=== PATIENT | male | born 1980 | race Caucasian/White ===

== ENCOUNTER 2018-12-20 11:55 | Observation (INO) | payer BC ==
[2018-12-20] MEDS ORDERED: SODIUM CHLORIDE 0.9% 1,000 ML IV STA (12:30)
[2018-12-20] MEDS ORDERED: NITROGLYCERIN SL TABS 0.4 MG TAB SUBLINGUAL STA ×3 (12:30)
[2018-12-20] MEDS ORDERED: ASPIRIN 81 MG PO STA (12:30)
--- NOTE | 2018-12-20 12:34 | ED ---
General Adult HPI - General Chief complaint: Chest Pain Stated complaint: chest pain Time Seen by Provider: 12/20/18 12:01 Source: patient, EMS, RN notes reviewed Mode of arrival: EMS Limitations: no limitations - History of Present Illness Initial comments: Patient is a pleasant 38-year-old male presenting to the emergency Department with complaints of chest discomfort. Onset of symptoms was 3 AM. Symptoms have progressively worsened since that time and starting to become more moderate now. Discomfort feels like pressure. No radiation. Patient does have some mild associated dyspnea and was sweaty one point earlier. No nausea. Patient does question if his symptoms could be related to anxiety. - Related Data Home Medications Medication Instructions Recorded Confirmed Atenolol [Tenormin] 12.5 mg PO BID 12/20/18 12/20/18 Dextroamphetamine/Amphetamine 30 mg PO QAM 12/20/18 12/20/18 [Adderall Xr] Allergies Allergy/AdvReac Type Severity Reaction Status Date / Time No Known Allergies Allergy Verified 12/20/18 12:16 Review of Systems ROS Statement: Those systems with pertinent positive or pertinent negative responses have been documented in the HPI. ROS Other: All systems not noted in ROS Statement are negative. Constitutional: Denies: fever Eyes: Denies: eye pain ENT: Denies: ear pain Respiratory: Reports: as per HPI Cardiovascular: Reports: chest pain Endocrine: Denies: fatigue Gastrointestinal: Denies: abdominal pain Genitourinary: Denies: dysuria Musculoskeletal: Denies: back pain Skin: Denies: rash Neurological: Denies: weakness Psychiatric: Reports: anxiety Past Medical History Past Medical History: Hypertension History of Any Multi-Drug Resistant Organisms: None Reported Past Surgical History: No Surgical Hx Reported Past Psychological History: ADD/ADHD Smoking Status: Never smoker Past Alcohol Use History: Occasional Past Drug Use History: Marijuana General Exam Limitations: no limitations General appearance: alert, in no apparent distress Head exam: Present: atraumatic Eye exam: Present: normal appearance, PERRL ENT exam: Present: normal oropharynx Neck exam: Present: normal inspection Respiratory exam: Present: normal lung sounds bilaterally Cardiovascular Exam: Present: regular rate, normal rhythm Expanded Peripheral pulses: 2+: Radial (R), Radial (L), Posterior Tibialis (R), Posterior Tibialis (L) GI/Abdominal exam: Present: soft. Absent: tenderness Extremities exam: Present: normal inspection. Absent: pedal edema, calf tenderness Neurological exam: Present: alert Psychiatric exam: Present: normal affect, normal mood Skin exam: Present: normal color Course Vital Signs 12/20/18 12/20/18 12/20/18 11:57 12:04 14:24 Temperature 99.0 F Pulse Rate 114 H 105 H 104 H Respiratory 22 18 Rate Blood Pressure 120/99 136/101 O2 Sat by Pulse 100 98 Oximetry - Reevaluation(s) Reevaluation #1: 12/20/18 12:32 Patient does admit that he did try methamphetamine and marijuana 2 days ago and questions if that could be related to his symptoms. EKG Findings - EKG Comments: EKG Findings:: Sinus tachycardia 108. WA 170. QRS 96. QT 364. QTC 487. Normal axis. Normal QRS. No acute ST change. Medical Decision Making - Medical Decision Making Patient reevaluated and resting comfortably in bed. Patient and family updated on results and plan. Patient states he did get some improvement with nitroglycerin. Case was discussed in detail with Dr. Hodgson, who will admit covered for Dr. Og. - Lab Data Result diagrams: 12/20/18 12:13 12/20/18 12:13 Lab Results 12/20/18 12/20/18 12/20/18 Range/Units 12:13 12:13 12:13 WBC 6.9 (3.8-10.6) k/uL RBC 4.92 (4.30-5.90) m/uL Hgb 15.3 (13.0-17.5) gm/dL Hct 46.7 (39.0-53.0) % MCV 94.9 (80.0-100.0) fL MCH 31.1 (25.0-35.0) pg MCHC 32.8 (31.0-37.0) g/dL RDW 13.0 (11.5-15.5) % Plt Count 188 (150-450) k/uL Neutrophils % 73 % Lymphocytes % 15 % Monocytes % 7 % Eosinophils % 1 % Basophils % 1 % Neutrophils # 5.1 (1.3-7.7) k/uL Lymphocytes # 1.1 (1.0-4.8) k/uL Monocytes # 0.5 (0-1.0) k/uL Eosinophils # 0.1 (0-0.7) k/uL Basophils # 0.0 (0-0.2) k/uL PT 10.5 (9.0-12.0) sec INR 1.0 (<1.2) APTT 24.7 (22.0-30.0) sec D-Dimer 0.27 (<0.60) mg/L FEU Sodium 140 (137-145) mmol/L Potassium 3.7 (3.5-5.1) mmol/L Chloride 107 (98-107) mmol/L Carbon Dioxide 23 (22-30) mmol/L Anion Gap 10 mmol/L BUN 14 (9-20) mg/dL Creatinine 1.04 (0.66-1.25) mg/dL Est GFR (CKD-EPI)AfAm >90 (>60 ml/min/1.73 sqM) Est GFR (CKD-EPI)NonAf 90 (>60 ml/min/1.73 sqM) Glucose 111 H (74-99) mg/dL Calcium 9.7 (8.4-10.2) mg/dL Magnesium 1.8 (1.6-2.3) mg/dL Total Bilirubin 1.2 (0.2-1.3) mg/dL AST 46 (17-59) U/L ALT 51 (21-72) U/L Alkaline Phosphatase 86 (38-126) U/L Troponin I (0.000-0.034) ng/mL Total Protein 7.7 (6.3-8.2) g/dL Albumin 4.4 (3.5-5.0) g/dL 12/20/18 Range/Units 12:13 WBC (3.8-10.6) k/uL RBC (4.30-5.90) m/uL Hgb (13.0-17.5) gm/dL Hct (39.0-53.0) % MCV (80.0-100.0) fL MCH (25.0-35.0) pg MCHC (31.0-37.0) g/dL RDW (11.5-15.5) % Plt Count (150-450) k/uL Neutrophils % % Lymphocytes % % Monocytes % % Eosinophils % % Basophils % % Neutrophils # (1.3-7.7) k/uL Lymphocytes # (1.0-4.8) k/uL Monocytes # (0-1.0) k/uL Eosinophils # (0-0.7) k/uL Basophils # (0-0.2) k/uL PT (9.0-12.0) sec INR (<1.2) APTT (22.0-30.0) sec D-Dimer (<0.60) mg/L FEU Sodium (137-145) mmol/L Potassium (3.5-5.1) mmol/L Chloride (98-107) mmol/L Carbon Dioxide (22-30) mmol/L Anion Gap mmol/L BUN (9-20) mg/dL Creatinine (0.66-1.25) mg/dL Est GFR (CKD-EPI)AfAm (>60 ml/min/1.73 sqM) Est GFR (CKD-EPI)NonAf (>60 ml/min/1.73 sqM) Glucose (74-99) mg/dL Calcium (8.4-10.2) mg/dL Magnesium (1.6-2.3) mg/dL Total Bilirubin (0.2-1.3) mg/dL AST (17-59) U/L ALT (21-72) U/L Alkaline Phosphatase (38-126) U/L Troponin I <0.012 (0.000-0.034) ng/mL Total Protein (6.3-8.2) g/dL Albumin (3.5-5.0) g/dL - Radiology Data Radiology results: image reviewed (Chest x-ray shows no acute process) Disposition Clinical Impression: Chest pain Disposition: ADMITTED IP TO THIS HOSP Is patient prescribed a controlled substance at d/c from ED?: No Referrals: Anai Og III, MD [Primary Care Provider] - 1-2 days Decision Time: 14:37
[2018-12-20] MEDS ORDERED: LORazepam 1 MG TAB PO STA (12:38)
[2018-12-20 12:50] LABS: Basophils % (A) 1 %; Eosinophils # (A) 0.1 k/uL (0-0.7); Eosinophils % (A) 1 %; HCT 46.7 % (39.0-53.0); HGB 15.3 gm/dL (13.0-17.5); Lymphocytes # (A) 1.1 k/uL (1.0-4.8); Lymphocytes % (A) 15 %; MCH 31.1 pg (25.0-35.0); MCHC 32.8 g/dL (31.0-37.0); MCV 94.9 fL (80.0-100.0); Mean Platelet Volume 7.8; Monocytes # (A) 0.5 k/uL (0-1.0); Monocytes % (A) 7 %; Neutrophils # (A) 5.1 k/uL (1.3-7.7); Neutrophils % (A) 73 %; Platelet Count 188 k/uL (150-450); RBC 4.92 m/uL (4.30-5.90); WBC 6.9 k/uL (3.8-10.6)
[2018-12-20 13:00] LABS: D-Dimer 0.27 mg/L FEU (<0.60); Partial Thromboplastin Time 24.7 sec (22.0-30.0); Prothrombin Time 10.5 sec (9.0-12.0)
[2018-12-20 13:01] LABS: ALT 51 U/L (21-72); AST 46 U/L (17-59); Albumin 4.4 g/dL (3.5-5.0); Alkaline Phosphatase 86 U/L (38-126); Anion Gap 10 mmol/L; Blood Urea Nitrogen 14 mg/dL (9-20); Calcium 9.7 mg/dL (8.4-10.2); Carbon Dioxide 23 mmol/L (22-30); Chloride 107 mmol/L (98-107); Glucose 111 mg/dL (74-99); Magnesium 1.8 mg/dL (1.6-2.3); Potassium 3.7 mmol/L (3.5-5.1); Sodium 140 mmol/L (137-145); Total Bilirubin 1.2 mg/dL (0.2-1.3); Total Protein 7.7 g/dL (6.3-8.2)
--- NOTE | 2018-12-20 13:34 | XR ---
EXAMINATION TYPE: XR chest 2V DATE OF EXAM: 12/20/2018 COMPARISON: NONE HISTORY: Chest pain TECHNIQUE: Frontal and lateral views of the chest are obtained. FINDINGS: There is no focal air space opacity, pleural effusion, or pneumothorax seen. The cardiac silhouette size is within normal limits. The osseous structures are intact. IMPRESSION: No acute cardiopulmonary process.
[2018-12-20] MEDS ORDERED: NITROGLYCERIN SL TABS 0.4 MG TAB SUBLINGUAL PRN (14:38)
--- NOTE | 2018-12-20 18:07 | P.HPIM ---
History of Present Illness this is a pleasant 38 yo M with past medical history of hypertension , and anxiety who presents with palpitation at 3 am this morning associated with some chest pain on the left side about 2-4/10 radiating to the left arm and neck, aching in character. associated with some mild dyspnea as per pt , no dizziness or syncope. no numbness or weakness. no fever. no change in urine or bowel habits, no abd pain , no nausea or vomiting. pt vitals showing mild tachycardia. rest of vitals are stable, EKG: sinus tachycardia at 108, no significant st-t changes. qtc 487. labs reviewed showing unremarkable CBC, BMP, liver enz. troponin is negative Review of Systems CONSTITUTIONAL: No fever, no malaise, no fatigue. HEENT: No recent visual problems or hearing problems. Denied any sore throat. CARDIOVASCULAR: No orthopnea, PND, no palpitations, no syncope. PULMONARY: No shortness of breath, no cough, no hemoptysis. GASTROINTESTINAL: No diarrhea, no nausea, no vomiting, no abdominal pain. Normoactive bowel sounds. NEUROLOGICAL: No headaches, no weakness, no numbness. HEMATOLOGICAL: Denies any bleeding or petechiae. GENITOURINARY: Denies any burning micturition, frequency, or urgency. MUSCULOSKELETAL/RHEUMATOLOGICAL: Denies any joint pain, swelling, or any muscle pain. ENDOCRINE: Denies any polyuria or polydipsia. Past Medical History Past Medical History: Hypertension History of Any Multi-Drug Resistant Organisms: None Reported Past Surgical History: No Surgical Hx Reported Past Psychological History: ADD/ADHD Smoking Status: Never smoker Past Alcohol Use History: Occasional Past Drug Use History: Marijuana Medications and Allergies Home Medications Medication Instructions Recorded Confirmed Type Atenolol [Tenormin] 12.5 mg PO BID 12/20/18 12/20/18 History Dextroamphetamine/Amphetamine 30 mg PO QAM 12/20/18 12/20/18 History [Adderall Xr] Allergies Allergy/AdvReac Type Severity Reaction Status Date / Time No Known Allergies Allergy Verified 12/20/18 12:16 Physical Exam Vitals: Vital Signs Temp Pulse Resp BP Pulse Ox 12/20/18 14:52 90 18 136/93 98 12/20/18 14:24 104 H 18 136/101 98 12/20/18 12:04 105 H 12/20/18 11:57 99.0 F 114 H 22 120/99 100 Intake and Output 12/20/18 12/20/18 12/20/18 06:59 14:59 22:59 Other: Weight 117.934 kg GENERAL: The patient is alert and oriented x3, not in any acute distress. Well developed, well nourished. HEENT: Pupils are round and equally reacting to light. EOMI. No scleral icterus. No conjunctival pallor. Normocephalic, atraumatic. No pharyngeal erythema. No thyromegaly. CARDIOVASCULAR: S1 and S2 present. No murmurs, rubs, or gallops. PULMONARY: Chest is clear to auscultation, no wheezing or crackles. ABDOMEN: Soft, nontender, nondistended, normoactive bowel sounds. No palpable organomegaly. MUSCULOSKELETAL: No joint swelling or deformity. EXTREMITIES: No cyanosis, clubbing, or pedal edema. NEUROLOGICAL: Gross neurological examination did not reveal any focal deficits. SKIN: No rashes. Results CBC & Chem 7: 12/20/18 12:13 12/20/18 12:13 Labs: Abnormal Lab Results - Last 24 Hours (Table) 12/20/18 Range/Units 12:13 Glucose 111 H (74-99) mg/dL Assessment and Plan Assessment: plapitation chest pain , rule out cardiac causes vz others anxiety essential hypertension Plan: this is a pleasant 38 yo M who presents with tachycardia and chest pain , check cardiac enz, cardiology consult is called. Labs and medication were reviewed.. Continue same treatment. Continue with symptomatic treatment. Resume home medication. Monitor lytes and vitals. DVT and GI prophylaxis. Further recommendations of the clinical course of the patient DVT prophylaxis: Subcutaneous heparin GI Prophylaxis: Pepcid Prognosis is guarded
[2018-12-20] MEDS ORDERED: traMADol 50 MG TAB PO PRN (21:30)
[2018-12-20] MEDS: NITROGLYCERIN OINT 1 INCH/GM PACKET TOPICAL SCH ×2 (21:34→22:42)
[2018-12-20] MEDS: ATENOLOL 25 MG TAB PO SCH (22:36)
[2018-12-20] MEDS: FAMOTIDINE 20 MG/2 ML VIAL IV SCH (22:36)
[2018-12-20] MEDS: HEPARIN SODIUM,PORCINE 5,000 UNIT/ML 1 ML VIAL SQ SCH (22:36)
[2018-12-21 01:11] LABS: Cholesterol 148 mg/dL (<200); HDL Cholesterol 53 mg/dL (40-60); LDL Cholesterol,Calculated 82 mg/dL (0-99); Triglycerides 64 mg/dL (<150)
[2018-12-21] MEDS: NITROGLYCERIN OINT 1 INCH/GM PACKET TOPICAL SCH (03:42)
[2018-12-21 07:49] VITALS: RESP 15; TEMP 97.7
[2018-12-21] MEDS ORDERED: ASPIRIN 325 MG TAB PO SCH (09:00)
[2018-12-21] MEDS: FAMOTIDINE 20 MG/2 ML VIAL IV SCH (09:40)
[2018-12-21] MEDS: HEPARIN SODIUM,PORCINE 5,000 UNIT/ML 1 ML VIAL SQ SCH (09:40)
[2018-12-21] MEDS: ATENOLOL 25 MG TAB PO SCH (09:40)
--- NOTE | 2018-12-21 09:54 | P.CRDCN ---
History of Present Illness History of present illness: This is a pleasant 38-year-old male past medical history significant for hypertension. He denies history of coronary artery disease, diabetes mellitus or dyslipidemia. He follows in the office with Dr. Buchanan. We have been asked to see him in consultation secondary to an episode of chest discomfort. He presented to the hospital yesterday with a pressure sensation in the left precordial region associated with mild diaphoresis and shortness of breath. This woke him up out of sleep at 3 AM with no specific aggravating factor. He also describes a mild pressure in the left neck at times, not always associated with the chest pressure. No radiation to the arm, back or jaw. He denies associated palpitations, dizziness, nausea or vomiting. His symptoms ultimately subsided after receiving Ativan in the emergency department. He is currently chest pain-free. EKG reveals sinus tachycardia heart rate 108, no acute ST or T wave abnormalities noted. Chest x-ray is negative for acute cardiopulmonary process. Laboratory data reviewed, WBC 6.9, hemoglobin 15.3, platelets 188, d-dimer 0.27, sodium 140, potassium 3.7, creatinine 1.04, magnesium 1.8, cardiac enzymes negative 3, LDL 82 and HDL 53. Current cardiac medications include atenolol 12.5 mg twice a day. At the time of my exam: CONSTITUTIONAL: Denies fever. Denies chills. EYES: Denies blurred vision. Denies vision changes. Denies eye pain. EARS, NOSE, MOUTH & THROAT: Denies headache. Denies sore throat. Denies ear pain. CARDIOVASCULAR: Denies chest pain. Denies shortness of breath. Denies orthopnea. Denies PND. Denies palpitations. RESPIRATORY: Denies cough. GASTROINTESTINAL: Denies abdominal pain. Denies diarrhea. Denies constipation. Denies nausea. Denies vomiting. MUSCULOSKELETAL: Denies myalgias. INTEGUMENTARY: Denies pruitis. Denies rash. NEUROLOGIC: Denies numbness. Denies tingling. Denies weakness. PSYCHIATRIC: Denies anxiety. Denies depression. ENDOCRINE: Denies fatigue. Denies weight change. Denies polydipsia. Denies polyurina. GENITOURINARY: Denies burning, hematuria or urgency with micturation. HEMATOLOGIC: Denies history of anemia. Denies bleeding. Blood pressure 111/70 heart rate 69 afebrile maintaining oxygen saturation on room air GENERAL: This is a 38-year-old male in no apparent distress at the time of my examination. HEENT: Head is atraumatic, normocephalic. Pupils are equal, round. Sclerae anicteric. Conjunctivae are clear. Mucous membranes of the mouth are moist. Neck is supple. There is no jugular venous distention. No carotid bruit is heard. LUNGS: Clear to auscultation no wheezes, rales or rhonchi. No chest wall tenderness is noted on palpation or with deep breathing. HEART: Regular rate and rhythm without murmurs, rubs or gallops. S1 and S2 heard. ABDOMEN: Soft, nontender. Bowel sounds are heard. No organomegaly noted. EXTREMITIES: No evidence of peripheral edema and no calf tenderness noted. VASCULAR: Radial and dorsalis pedis pulses palpated, no evidence of clubbing. NEUROLOGIC: Patient is awake, alert and oriented x3. ASSESSMENT Chest pain, atypical for angina. An acute coronary event. Possibly related to an anxiety reaction. Hypertension PLAN An acute coronary event has been ruled out. Obtain 2-D echocardiogram and Doppler study to assess cardiac structure and function. Perform exercise stress test to assess for stress-induced ischemia. Lifestyle modifications are recommended for stress modification and management. Follow-up with Dr. Buchanan upon discharge. Thank you kindly for this consultation. Nurse Practitioner note has been reviewed, I agree with a documented findings and plan of care. Patient was seen and examined. Past Medical History Past Medical History: Hypertension History of Any Multi-Drug Resistant Organisms: None Reported Past Surgical History: No Surgical Hx Reported Smoking Status: Never smoker - Past Family History Mother Family Medical History: Hypertension, Thyroid Disorder Father Family Medical History: No Reported History Medications and Allergies Home Medications Medication Instructions Recorded Confirmed Type Atenolol [Tenormin] 12.5 mg PO BID 12/20/18 12/20/18 History Dextroamphetamine/Amphetamine 30 mg PO QAM 12/20/18 12/20/18 History [Adderall Xr] Allergies Allergy/AdvReac Type Severity Reaction Status Date / Time No Known Allergies Allergy Verified 12/20/18 21:37 Physical Exam Vitals: Vital Signs Temp Pulse Pulse Resp BP BP Pulse Ox 12/21/18 07:48 97.7 F 69 15 111/70 99 12/21/18 03:34 16 12/21/18 03:32 98.1 F 71 16 98/57 96 12/20/18 23:39 98.2 F 85 18 119/69 98 12/20/18 23:35 16 12/20/18 21:45 16 12/20/18 21:38 97.5 F L 86 16 149/101 97 12/20/18 21:06 86 18 132/94 98 12/20/18 19:42 74 18 141/95 99 12/20/18 14:52 90 18 136/93 98 12/20/18 14:24 104 H 18 136/101 98 12/20/18 12:04 105 H 12/20/18 11:57 99.0 F 114 H 22 120/99 100 Intake and Output 12/20/18 12/21/18 12/21/18 22:59 06:59 14:59 Other: # Voids 1 Results 12/20/18 12:13 12/20/18 12:13 Cardiac Enzymes 12/20/18 12/20/18 12/20/18 Range/Units 12:13 12:13 18:04 AST 46 (17-59) U/L Troponin I <0.012 <0.012 (0.000-0.034) ng/mL 12/21/18 Range/Units 00:18 AST (17-59) U/L Troponin I <0.012 (0.000-0.034) ng/mL Coagulation 12/20/18 Range/Units 12:13 PT 10.5 (9.0-12.0) sec APTT 24.7 (22.0-30.0) sec Lipids 12/20/18 Range/Units 12:13 Triglycerides 64 (<150) mg/dL Cholesterol 148 (<200) mg/dL HDL Cholesterol 53 (40-60) mg/dL CBC 12/20/18 Range/Units 12:13 WBC 6.9 (3.8-10.6) k/uL RBC 4.92 (4.30-5.90) m/uL Hgb 15.3 (13.0-17.5) gm/dL Hct 46.7 (39.0-53.0) % Plt Count 188 (150-450) k/uL Comprehensive Metabolic Panel 12/20/18 Range/Units 12:13 Sodium 140 (137-145) mmol/L Potassium 3.7 (3.5-5.1) mmol/L Chloride 107 (98-107) mmol/L Carbon Dioxide 23 (22-30) mmol/L BUN 14 (9-20) mg/dL Creatinine 1.04 (0.66-1.25) mg/dL Glucose 111 H (74-99) mg/dL Calcium 9.7 (8.4-10.2) mg/dL AST 46 (17-59) U/L ALT 51 (21-72) U/L Alkaline Phosphatase 86 (38-126) U/L Total Protein 7.7 (6.3-8.2) g/dL Albumin 4.4 (3.5-5.0) g/dL Current Medications Generic Name Dose Route Start Last Admin Trade Name Freq PRN Reason Stop Dose Admin Aspirin 325 mg 12/21/18 09:00 12/21/18 09:39 Aspirin PO 325 mg DAILY DAVID Administration Atenolol 12.5 mg 12/20/18 22:30 12/21/18 09:40 Tenormin PO 12.5 mg BID DAVID Administration Famotidine 20 mg 12/20/18 21:30 12/21/18 09:40 Pepcid IV 20 mg Q12HR DAVID Administration Heparin Sodium (Porcine) 5,000 unit 12/20/18 21:30 12/21/18 09:40 Heparin SQ 5,000 unit Q12HR DAVID Administration Nitroglycerin 0.4 mg 12/20/18 14:38 Nitrostat SUBLINGUAL Q5M PRN Chest Pain Sodium Chloride 10 ml 12/20/18 21:00 12/21/18 09:42 Saline Flush IV 10 ml BID DAVID Administration Tramadol HCl 50 mg 12/20/18 21:30 Ultram PO QID PRN Pain Intake and Output 12/20/18 12/21/18 12/21/18 22:59 06:59 14:59 Other: # Voids 1 12/20/18 12:13 12/20/18 12:13
--- NOTE | 2018-12-21 10:49 | ECHOF ---
Referral Reason:cp MEASUREMENTS -------- HEIGHT: 182.9 cm WEIGHT: 117.9 kg BP: RVIDd: 2.9 cm (< 3.3) IVSd: 1.4 cm (0.6 - 1.1) LVIDd: 4.2 cm (3.9 - 5.3) LVPWd: 1.5 cm (0.6 - 1.1) IVSs: 1.9 cm LVIDs: 2.6 cm LVPWs: 1.9 cm LAESV Index (A-L): 10.54 ml/m Ao Diam: 3.0 cm (2.0 - 3.7) AV Cusp: 2.2 cm (1.5 - 2.6) LA Diam: 3.0 cm (2.7 - 3.8) MV EXCURSION: 14.924 mm (> 18.000) MV EF SLOPE: 119 mm/s (70 - 150) EPSS: 0.8 cm MV E Anderson: 0.68 m/s MV DecT: 170 ms MV A Anderson: 0.49 m/s MV E/A Ratio: 1.40 RAP: 5.00 mmHg RVSP: 7.62 mmHg FINDINGS -------- Sinus rhythm. This was a technically difficult study with suboptimal views. The left ventricular size is normal. There is moderate concentric left ventricular hypertrophy. O verall left ventricular systolic function is normal with, an EF between 55 - 60 %. The right ventricle is normal in size. The left atrial size is normal. The right atrial size is normal. Lumason used Interatrial and interventricular septum intact. The aortic valve is trileaflet and appears structurally normal. The mitral valve leaflets are mildly thickened. There is trace mitral regurgitation. Trace tricuspid regurgitation present. Right ventricular systolic pressure is normal at < 35 mmHg. There is no pulmonic regurgitation present. The aortic root size is normal. IVC Not well visulized. There is no pericardial effusion. CONCLUSIONS -------- 1. Sinus rhythm. 2. This was a technically difficult study with suboptimal views. 3. The left ventricular size is normal. 4. There is moderate concentric left ventricular hypertrophy. 5. Overall left ventricular systolic function is normal with, an EF between 55 - 60 %. 6. The right ventricle is normal in size. 7. The left atrial size is normal. 8. The right atrial size is normal. 9. Lumason used 10. Interatrial and interventricular septum intact. 11. The aortic valve is trileaflet and appears structurally normal. 12. The mitral valve leaflets are mildly thickened. 13. There is trace mitral regurgitation. 14. Trace tricuspid regurgitation present. 15. Right ventricular systolic pressure is normal at < 35 mmHg. 16. There is no pulmonic regurgitation present. 17. The aortic root size is normal. 18. IVC Not well visulized. 19. There is no pericardial effusion. CARPET FLOOR LAYER APPRENTICE: Fariha Kent RDCS
[2018-12-21 11:46] VITALS: BP 112/70; PULSE 68
--- NOTE | 2018-12-21 11:46 | EST ---
EXERCISE STRESS DATE OF SERVICE: 12/21/2018 AGE: 38 SEX: Male HT: 6'2" WT: 260 pounds PROTOCOL: Jt STAGE: IV DURATION OF EXERCISE: 10 minutes HEART RATE REST: 98 BLOOD PRESSURE REST: 116/85 MAXIMUM HEART RATE ACHIEVED: 154 MAXIMUM BLOOD PRESSURE: 178/107 85% MPHR: 153 100% MPHR: 180 METS: 11 INDICATIONS: Chest pain. CLINICAL INFORMATION: Baseline EKG shows sinus rhythm, normal axis, normal intervals. Patient exercised on Jt protocol for a total of 10 minutes achieving 11 METs, 86% of predicted maximal heart rate without chest pain or diagnostic ST-segment depression. CONCLUSIONS: 1. Excellent exercise tolerance. 2. Negative stress test by EKG criteria. MMODL / IJN: [id number] /
--- NOTE | 2018-12-21 12:40 | US ---
EXAMINATION TYPE: US carotid duplex BILAT DATE OF EXAM: 12/21/2018 COMPARISON: NONE CLINICAL HISTORY: pressure in neck area ,head pressure, left eye twitching EXAM MEASUREMENTS: RIGHT: Peak Systolic Velocity (PSV) cm/sec ----- Right CCA: 72.6 ----- Right ICA: 80.1 ----- Right ECA: 73.9 ICA/CCA ratio: 1.1 RIGHT: End Diastole cm/sec ----- Right CCA: 23.1 ----- Right ICA: 21.9 ----- Right ECA: 14.4 LEFT: Peak Systolic Velocity (PSV) cm/sec ----- Left CCA: 62.0 ----- Left ICA: 87.5 ----- Left ECA: 83.1 ICA/CCA ratio: 1.4 LEFT: End Diastole cm/sec ----- Left CCA: 21.0 ----- Left ICA: 34.7 ----- Left ECA: 19.3 VERTEBRALS (direction of flow): Right Vertebral: Antegrade Left Vertebral: Antegrade Rhythm: Normal Very mild intimal wall thickening is noted at bilateral carotid bifurcation, but PSV is wnl bilateral ly. . IMPRESSION: 1. Mild intimal thickening with no significant hemodynamic stenosis bilaterally. Criteria for Assigning % of Stenosis / Diameter reduction (Estimation based on the indirect measurements of the internal carotid artery velocities (ICA PSV). 1. Normal (no stenosis)=ICA PSV < 125 cm/s: ratio < 2.0: ICA EDV<40 cm/s. 2. Less than 50% stenosis=ICA PSV < 125 cm/s: ratio < 2.0: ICA EDV<40 cm/s. 3. 50 to 69% stenosis=ICA PSV of 125 to 230 cm/s: ration 2.0 ? 4.0: ICA EDV 40-100 cm/s. 4. Greater than 70% stenosis to near occlusion= ICA PSV > 230 cm/s: ratio > 4.0: ICA EDV > 100 cm/s. 5. Near occlusion= ICA PSV velocities may be low or undetectable: variable ratio and ICA EDV. 6. Total occlusion=unable to detect flow.
--- NOTE | 2018-12-21 15:13 | P.DS ---
Providers Date of admission: 12/20/18 14:38 Attending physician: Matty Villagran MD Consults: 12/20/18 14:38 Consult Physician Urgent Consulting Provider: Pantera Rosales Consult Reason/Comments: cp Do you want consulting provider notified?: Yes Primary care physician: Anai [facility] Course: Diagnoses: Hospital course: this is a pleasant 38 yo M with past medical history of hypertension , and anxiety who presents with palpitation at 3 am this morning associated with some chest pain on the left side about 2-4/10 radiating to the left arm and neck, aching in character. associated with some mild dyspnea as per pt , no dizziness or syncope. no numbness or weakness. no fever. no change in urine or bowel habits, no abd pain , no nausea or vomiting. pt vitals showing mild tachycardia. rest of vitals are stable, EKG: sinus tachycardia at 108, no significant st-t changes. qtc 487. labs reviewed showing unremarkable CBC, BMP, liver enz. troponin is negative . Patient has been evaluated by cardiology team. He had negative stress test. He has negative carotid Doppler for any stenosis. Patient symptoms are significantly improved and his back to his baseline. On the day of discharge patient denies to me any chest pain. No dyspnea. No palpitation and no dizziness or syncope. No abdominal pain or nausea vomiting. No change in urine or bowel habits. No fever Patient feels he can go home. Problems and management plan was discussed with the patient and he verbalized understanding and acceptance Patient was found stable and can discharge home however he needs follow-up as an outpatient. Patient was instructed to follow up with his PCP in one week and he agrees. Also he agrees with the appointments made for him with the cardiology and is timing and he said he is going to follow up Gen: patient is a AAOx3, no distress CVS: S1-S2, RRR, no murmur Lungs: B/L CTA, no wheezing Abdomen: soft, no distention, no tenderness, positive bowel sounds Extremity: no leg edema or induration Time spent more than 35 minutes Plan - Discharge Summary New Discharge Prescriptions: New Aspirin 325 mg PO DAILY #30 tab Famotidine [Pepcid] 20 mg PO Q12HR #14 tab Continue Dextroamphetamine/Amphetamine [Adderall Xr] 30 mg PO QAM Atenolol [Tenormin] 12.5 mg PO BID Discharge Medication List Atenolol [Tenormin] 12.5 mg PO BID 12/20/18 [History] Dextroamphetamine/Amphetamine [Adderall Xr] 30 mg PO QAM 12/20/18 [History] Aspirin 325 mg PO DAILY #30 tab 12/21/18 [Rx] Famotidine [Pepcid] 20 mg PO Q12HR #14 tab 12/21/18 [Rx] Follow up Appointment(s)/Referral(s): Anai Og III, MD [Primary Care Provider] - 1-2 days Pantera Rosales MD [STAFF PHYSICIAN] - 01/04/19 3:30 pm (follow up with Dr. Rosales) Patient Instructions/Handouts: Chest Pain (DC) Activity/Diet/Wound Care/Special Instructions: Cardiac diet Activity is limited until you see your doctor Discharge Disposition: HOME SELF-CARE
[2018-12-21] MEDS ORDERED: FAMOTIDINE 20 MG TAB PO SCH (21:00)
== END 2018-12-21 15:18 | disposition home or self-care (01) ==
LOC: EC 11:55 → 1SOBS 14:38
PROVIDERS: ADMIT Internal Medicine; ATTEND Internal Medicine
DX: R07.89 Other chest pain (principal); R07.2 Precordial pain; R61 Generalized hyperhidrosis; R06.00 Dyspnea, unspecified; R06.02 Shortness of breath; R00.0 Tachycardia, unspecified; R00.2 Palpitations; I10 Essential (primary) hypertension; F41.9 Anxiety disorder, unspecified; F90.9 Attention-deficit hyperactivity disorder, unspecified type; Z79.899 Other long term (current) drug therapy; Z82.49 Family history of ischemic heart disease and other diseases of the circulatory system; Z83.49 Family history of other endocrine, nutritional and metabolic diseases
CPT/HCPCS: 96372 ×2; 96374; 96376; 99285; 36415; 93005; 93017; 93306; 85379; 80061; 80053; 83735; 84484 ×2; 85025; 85610; 85730; 71046; 93880; G0378 ×2; J1644 ×2; Q9950

== ENCOUNTER 2020-01-16 08:05 | Day surgery (SDC) | payer BC ==
[2020-01-11 12:26] VITALS: BMI 37.8
[~2020-01-16 08:05] MED LIST: LACTATED RINGERS 1,000 ML IV SCH
[2020-01-16 08:18] VITALS: TEMP 97.4
[2020-01-16] MEDS ORDERED: LACTATED RINGERS 1,000 ML IV ONE (08:24)
[2020-01-16] MEDS ORDERED: LIDOCAINE 1% (10MG/ML) FOR IV START INTRADERMA ONE (08:27)
[2020-01-16] MEDS ORDERED: PROPOFOL 10 MG/ML 20 ML VIAL IV ONE (08:47)
[2020-01-16 09:17] VITALS: RESP 16
--- NOTE | 2020-01-16 09:17 | P.PCN ---
Date of Procedure: 01/16/20 Description of Procedure: BRIEF HISTORY: Patient is a 39-year-old male with a history of gastroesophageal reflux disease with esophagitis who presents to the hospital for outpatient EGD for evaluation. He reports 6 months of frequent reflux. He has had some improvement on omeprazole therapy. Still has some breakthrough reflux. Denies any dysphagia or odynophagia. PROCEDURE PERFORMED: Esophagogastroduodenoscopy with biopsy. PREOPERATIVE DIAGNOSIS: GERD with esophagitis. ESTIMATED BLOOD LOSS: Minimal. IV sedation per anesthesia. PROCEDURE: After informed consent was obtained, the patient was brought into the endoscopy unit. IV sedation was administered by Anesthesia under continuous monitoring. Initially the Olympus GIF-190 video endoscope was inserted into the mouth. Esophagus intubated without any difficulty. It was gradually advanced into the stomach and duodenum and carefully examined. The bulb and the second part of the duodenum appeared normal, with biopsies taken. The scope at this time was withdrawn to the stomach, adequately insufflated with air, and upon careful examination, mucosa of the antrum, body, cardia and the fundus appeared normal, except for some mild scattered erythema in the antrum and body suggestive of mild gastritis with biopsies taken. The scope was then withdrawn into the esophagus. The GE junction was located at 42 cm from the incisors and appeared somewhat irregular with biopsies taken. The esophagus appeared normal. There were no erosions or ulcerations seen and the patient tolerated the procedure well. IMPRESSION: 1. Mild gastritis antrum and body, biopsied. 2. Biopsies of the GE junction and duodenum. 3. No ulcerations, esophagitis or other abnormalities of the esophagus noted. RECOMMENDATIONS: The findings of this examination were discussed with the patient. Okay to resume diet. Okay to resume medications. Continue omeprazole therapy. GERD lifestyle modifications discussed with the patient.
[2020-01-16 09:26] VITALS: BP 123/75; PULSE 61
== END 2020-01-16 10:08 | disposition home or self-care (01) ==
LOC: ORWHC2ENDO 08:05
PROVIDERS: ATTEND Internal Medicine
DX: K29.50 Unspecified chronic gastritis without bleeding (principal); K21.0 Gastro-esophageal reflux disease with esophagitis; I10 Essential (primary) hypertension; Z79.899 Other long term (current) drug therapy
CPT/HCPCS: 88305; 43239; J2704

== ENCOUNTER → 2021-06-03 | Outpatient (CLI) | payer BC ==
--- NOTE | 2021-06-10 12:47 | HM ---
HOLTER MONITOR REPORT Patient was monitored for 24 hours. The baseline rhythm is sinus mechanism with normal conduction, the average rate 80 beats per minute, minimum 43, maximum 130 beats per minute. Ventricular ectopic activity was present in the form of rare single PVCs. No supraventricular ectopic activity was noted. No diary was available. CONCLUSION: 1. Sinus mechanism as baseline rhythm. 2. Rare ventricular ectopic activity. 3. No supraventricular ectopic activity. 4. No diary was available. MMODL / IJN: [id number] /
== END | disposition home or self-care (01) ==
LOC: RADECHMAIN 12:14
PROVIDERS: ATTEND Family Medicine
DX: R00.2 Palpitations (principal)
CPT/HCPCS: 93225; 93226

== ENCOUNTER 2023-03-19 09:34 | Inpatient (IN) | payer BC ==
[2023-03-19] MEDS: METOPROLOL SUCCINATE (ER) 50 MG TAB.ER.24H PO SCH (10:54)
[2023-03-19 10:55] LABS: HCT 43.2 % (39.0-53.0); HGB 14.9 gm/dL (13.0-17.5); MCH 33.8 pg (25.0-35.0); MCHC 34.4 g/dL (31.0-37.0); MCV 98.1 fL (80.0-100.0); Mean Platelet Volume 8.8; Platelet Count 171 k/uL (150-450); RBC 4.41 m/uL (4.30-5.90); RDW 12.7 % (11.5-15.5); WBC 5.2 k/uL (3.8-10.6)
[2023-03-19 11:05] LABS: ALT 54 U/L (4-49); AST 39 U/L (17-59); African American GFR (CKD) >90 (>60 ml/min/1.73 sqM); Albumin 4.3 g/dL (3.5-5.0); Alkaline Phosphatase 101 U/L (38-126); Anion Gap 11 mmol/L; Blood Urea Nitrogen 12 mg/dL (9-20); Carbon Dioxide 26 mmol/L (22-30); Chloride 106 mmol/L (98-107); Glucose 106 mg/dL (74-99); Magnesium 2.2 mg/dL (1.6-2.3); Non-African American GFR(CKD) 81 (>60 ml/min/1.73 sqM); Sodium 143 mmol/L (137-145); Total Bilirubin 0.8 mg/dL (0.2-1.3); Total Protein 7.9 g/dL (6.3-8.2)
[2023-03-19] MEDS ORDERED: NITROGLYCERIN SL TABS 0.4 MG TAB SUBLINGUAL PRN (11:56)
--- NOTE | 2023-03-19 11:56 | ED ---
General Adult HPI - General Chief complaint: Recheck/Abnormal Lab/Rx Stated complaint: Heart Palpitations Time Seen by Provider: 03/19/23 09:40 Source: patient, RN notes reviewed, old records reviewed Mode of arrival: ambulatory Limitations: no limitations - History of Present Illness Initial comments: This is a 42-year-old male who presents emergency Department from the spinning doffer's office. Patient comes over because he's had a monitor on and it showed that he had a run of V. tach and the spinning doffer want patient to come to the emergency department be evaluated and admitted. Patient states he had episodes for a while that felt like palpitations in his chest but the other day when they stated he was in V. tach he stated he was asymptomatic. Patient currently has no chest pain palpitations difficulty breathing shortness of breath per patient denies any lightheadedness or dizziness. Patient denies any recent fever chills or cough per patient denies any swelling to the legs or calf tenderness. - Related Data Home Medications Medication Instructions Recorded Confirmed atenoloL [Tenormin] 25 mg PO DIRECTED 12/20/18 03/19/23 Omeprazole [PriLOSEC] 40 mg PO DAILY 01/11/20 03/19/23 Metoprolol Succinate (ER) [Toprol 50 mg PO DIRECTED 03/19/23 03/19/23 Xl] Allergies Allergy/AdvReac Type Severity Reaction Status Date / Time No Known Allergies Allergy Verified 03/19/23 10:35 Review of Systems ROS Statement: Those systems with pertinent positive or pertinent negative responses have been documented in the HPI. ROS Other: All systems not noted in ROS Statement are negative. Past Medical History Past Medical History: GERD/Reflux, Hypertension Additional Past Medical History / Comment(s): HERNIATED DISC. History of Any Multi-Drug Resistant Organisms: None Reported Past Surgical History: No Surgical Hx Reported Additional Past Anesthesia/Blood Transfusion Reaction / Comment(s): NEVER RECEIVED ANESTHESIA Past Psychological History: ADD/ADHD Smoking Status: Never smoker Past Alcohol Use History: Daily Past Drug Use History: None Reported - Past Family History Mother Family Medical History: Hypertension, Thyroid Disorder Father Family Medical History: No Reported History General Exam - General Exam Comments Initial Comments: GENERAL: Patient is well-developed and well-nourished. Patient is nontoxic and well- hydrated and is in mild distress. ENT: Neck is soft and supple. No significant lymphadenopathy is noted. Oropharynx is clear. Moist mucous membranes. Neck has full range of motion without eliciting any pain. EYES: The sclera were anicteric and conjunctiva were pink and moist. Extraocular movements were intact and pupils were equal round and reactive to light. Eyelids were unremarkable. PULMONARY: Unlabored respirations. Good breath sounds bilaterally. No audible rales rhonchi or wheezing was noted. CARDIOVASCULAR: There is a regular rate and rhythm without any murmurs gallops or rubs. ABDOMEN: Soft and nontender with normal bowel sounds. SKIN: Skin is clear with no lesions or rashes and otherwise unremarkable. NEUROLOGIC: Patient is alert and oriented x3. Cranial nerves II through XII are grossly intact. Motor and sensory are also intact. Normal speech, volume and content. Symmetrical smile. MUSCULOSKELETAL: Normal extremities with adequate strength and full range of motion. LYMPHATICS: No significant lymphadenopathy is noted PSYCHIATRIC: Normal psychiatric evaluation. Limitations: no limitations Course Vital Signs 03/19/23 09:38 Temperature 98.2 F Pulse Rate 73 Respiratory 18 Rate Blood Pressure 164/103 O2 Sat by Pulse 99 Oximetry Medical Decision Making - Medical Decision Making EKG was interpreted by myself EKG shows sinus rhythm with occasional PVC at [address] interval 293 QRSs 103 QT interval 395 2 QTC is 416 Was pt. sent in by a medical professional or institution (, PA, SCALE CLERK, urgent care, hospital, or long-term...) When possible be specific @ -Dr. Buchanan sent the patient over to the emergency department Did you speak to anyone other than the patient for history (EMS, parent, family, police, friend...)? What history was obtained from this source @ -I spoke with Dr. Pena about the patient's history Did you review nursing and triage notes (agree or disagree)? Why? @ -I reviewed and agree with nursing and triage notes Were old charts reviewed (outside hosp., previous admission, EMS record, old EKG, old radiological studies, urgent care reports/EKG's, long-term records)? Report findings @ -Reviewed the printout from the heart monitor that cardiology since Differential Diagnosis (chest pain, altered mental status, abdominal pain women, abdominal pain men, vaginal bleeding, weakness, fever, dyspnea, syncope, headache, dizziness, GI bleed, back pain, seizure, CVA, palpatations, mental health, musculoskeletal)? @ -Differential Palpitations Ventricular arrhythmias, atrial arrhythmias, myocardial infarction, anemia, thyrotoxicosis, electrolyte imbalance, hypokalemia, pulmonary embolism, pulmonary disease, drugs, alcohol, anxiety, stress.... This is not meant to be an all-inclusive list. EKG interpreted by me (3pts min.). @ -As above X-rays interpreted by me (1pt min.). @ -Chest x-ray shows no acute abnormality CT interpreted by me (1pt min.). @ -None done U/S interpreted by me (1pt. min.). @ -None done What testing was considered but not performed or refused? (CT, X-rays, U/S, labs)? Why? @ -None What meds were considered but not given or refused? Why? @ -None Did you discuss the management of the patient with other professionals (professionals i.e. , PA, SCALE CLERK, lab, RT, psych nurse, social media sr strategy manager, stripper and printer, teacher, chief operating officer, manager of case)? Give summary @ -I spoke with Dr. Roper she agreed to admit the patient admitted the patient wrote admitting orders Was smoking cessation discussed for >3mins.? @ -No Was critical care preformed (if so, how long)? @ -No Were there social determinants of health that impacted care today? How? (Homelessness, low income, unemployed, alcoholism, drug addiction, transportation, low edu. Level, literacy, decrease access to med. care, care home, rehab)? @ -No Was there de-escalation of care discussed even if they declined (Discuss DNR or withdrawal of care, Hospice)? DNR status @ -No What co-morbidities impacted this encounter? (DM, HTN, Smoking, COPD, CAD, Cancer, CVA, ARF, Chemo, Hep., AIDS, mental health diagnosis, sleep apnea, morbid obesity)? @ -None Was patient admitted / discharged? Hospital course, mention meds given and route, prescriptions, significant lab abnormalities, going to OR and other pertinent info. @ -I spoke with Dr. Pena and Dr. Pena saw the patient in the emergency d epartment with metoprolol was ordered for the patient and patient will be admitted to [facility] physician's and cardiology be consulted Undiagnosed new problem with uncertain prognosis? @ -No Drug Therapy requiring intensive monitoring for toxicity (Heparin, Nitro, Insulin, Cardizem)? @ -No Were any procedures done? @ -No Diagnosis/symptom? @ -Ventricular tachycardia Acute, or Chronic, or Acute on Chronic? @ -Acute Uncomplicated (without systemic symptoms) or Complicated (systemic symptoms)? @ -Complicated Side effects of treatment? @ -No Exacerbation, Progression, or Severe Exacerbation? @ -No Poses a threat to life or bodily function? How? (Chest pain, USA, MT, pneumonia, PE, COPD, DKA, ARF, appy, cholecystitis, CVA, Diverticulitis, Homicidal, Suicidal, threat to staff... and all critical care pts) @ -Yes this could lead to - Lab Data Result diagrams: 03/19/23 10:49 03/19/23 10:49 Lab Results 03/19/23 03/19/23 Range/Units 10:49 10:49 WBC 5.2 (3.8-10.6) k/uL RBC 4.41 (4.30-5.90) m/uL Hgb 14.9 (13.0-17.5) gm/dL Hct 43.2 (39.0-53.0) % MCV 98.1 (80.0-100.0) fL MCH 33.8 (25.0-35.0) pg MCHC 34.4 (31.0-37.0) g/dL RDW 12.7 (11.5-15.5) % Plt Count 171 (150-450) k/uL MPV 8.8 Sodium 143 (137-145) mmol/L Potassium 4.0 (3.5-5.1) mmol/L Chloride 106 (98-107) mmol/L Carbon Dioxide 26 (22-30) mmol/L Anion Gap 11 mmol/L BUN 12 (9-20) mg/dL Creatinine 1.11 (0.66-1.25) mg/dL Est GFR (CKD-EPI)AfAm >90 (>60 ml/min/1.73 sqM) Est GFR (CKD-EPI)NonAf 81 (>60 ml/min/1.73 sqM) Glucose 106 H (74-99) mg/dL Calcium 9.0 (8.4-10.2) mg/dL Magnesium 2.2 (1.6-2.3) mg/dL Total Bilirubin 0.8 (0.2-1.3) mg/dL AST 39 (17-59) U/L ALT 54 H (4-49) U/L Alkaline Phosphatase 101 (38-126) U/L Total Protein 7.9 (6.3-8.2) g/dL Albumin 4.3 (3.5-5.0) g/dL Disposition Clinical Impression: Ventricular tachycardia Disposition: ADMITTED IP TO THIS [facility] Time of Disposition: 11:56
--- NOTE | 2023-03-19 12:20 | P.CRDCN ---
History of Present Illness Consult date: 03/19/23 Reason for Consult (text): Ventricular tachycardia History of present illness: History of present illness: This is a 42-year-old male patient of Dr. Buchanan with past medical history of hypertension, gastroesophageal reflux disease. Patient states he has had of palpitations and fluttering feeling in his chest for the past 3 weeks and decided to see Dr. Buchanan. He ordered an event monitor for 1 month the patient returned and was found to have a 17 beat nonsustained ventricular tachycardia. Patient states when he feels fluttering he becomes anxious and then maybe he has chest pain following that. He denies any syncopal episodes, no lightheadedness or dizziness. Patient was sent from the office tract with to the emergency center where he has been seen today. Telemetry sinus rhythm CBC unremarkable. Electrolytes and renal function normal. Glucose 106. Magnesium 2.2, potassium 4. ALT 54 otherwise liver function tests are normal. Home cardiac medications: Toprol-XL 50 mg daily Echocardiogram 11/2018 revealed EF 55-60%, moderate concentric left hypertrophy Exercise stress test 2019 revealed no ischemia Review Of Systems: At the time of my evaluation: Constitutional: No fever, no chills. No weakness, fatigue or lethargy. EENT: No headache. No dizziness. Lungs: No shortness of breath, cough, no sputum production. No wheezing. Cardiovascular: + chest pain, no lower extremity edema. + palpitations. No paroxysmal nocturnal dyspnea. No orthopnea. No lightheadedness or dizziness. No syncopal episodes. Abdominal: No abdominal pain. No nausea, vomiting. Musculoskeletal: No myalgias. No muscle weakness, no frequent falls. Integumentary: No wounds. Neurologic: No aphasia. No facial droop. No change in mentation. Physical examination: Gen: This is a 42-year-old male. He is resting in the ears structure appears to be comfortable and in no acute distress VS: reviewed HEENT: Head is atraumatic, normocephalic. Pupils equal, round. Sclerae is anicteric. NECK: Supple. No JVD. . LUNGS: Clear to auscultation. No wheezes or rhonchi. No intercostal retractions. HEART: Regular rate and rhythm. No murmur. ABDOMEN: Soft No tenderness. EXTREMITIES: No pedal edema. No calf tenderness. NEUROLOGICAL: Patient is awake, alert and oriented x3. Assessment: Nonsustained ventricular tachycardia Chest pain possibly related to V. tach Hypertension Gastroesophageal reflux disease Plan: Resume Toprol-XL 50 mg daily Troponins, TSH Obtain 2-D echocardiogram and Doppler study to assess cardiac structure and function Further recommendations to follow based upon clinical course Thank you kindly for this consultation. Nurse practitioner note has been reviewed, I agree with documented findings and plan of care. Patient was seen and examined. Past Medical History Past Medical History: GERD/Reflux, Hypertension Additional Past Medical History / Comment(s): HERNIATED DISC. History of Any Multi-Drug Resistant Organisms: None Reported Past Surgical History: No Surgical Hx Reported Additional Past Anesthesia/Blood Transfusion Reaction / Comment(s): NEVER RECEIVED ANESTHESIA Past Psychological History: ADD/ADHD Smoking Status: Never smoker Past Alcohol Use History: Daily Past Drug Use History: None Reported - Past Family History Mother Family Medical History: Hypertension, Thyroid Disorder Father Family Medical History: No Reported History Medications and Allergies Home Medications Medication Instructions Recorded Confirmed Type atenoloL [Tenormin] 25 mg PO DIRECTED 12/20/18 03/19/23 History Omeprazole [PriLOSEC] 40 mg PO DAILY 01/11/20 03/19/23 History Metoprolol Succinate (ER) [Toprol 50 mg PO DIRECTED 03/19/23 03/19/23 History Xl] Allergies Allergy/AdvReac Type Severity Reaction Status Date / Time No Known Allergies Allergy Verified 03/19/23 10:35 Physical Exam Vitals: Vital Signs Temp Pulse Resp BP Pulse Ox 03/19/23 09:38 98.2 F 73 18 164/103 99 Intake and Output 03/18/23 03/19/23 03/19/23 22:59 06:59 14:59 Other: Weight 145.15 kg Results 03/19/23 10:49 03/19/23 10:49 Intake and Output 03/18/23 03/19/23 03/19/23 22:59 06:59 14:59 Other: Weight 145.15 kg Patient Weight 03/20/23 06:59 Weight 145.15 kg
--- NOTE | 2023-03-19 12:49 | XR ---
EXAMINATION TYPE: XR chest 2V DATE OF EXAM: 03/19/2023 COMPARISON: 12/20/2018 HISTORY: Chest pain TECHNIQUE: Frontal and lateral views of the chest are obtained. FINDINGS: There is no focal air space opacity. No evidence for pneumothorax. No pleural effusion. The cardiac silhouette size is within normal limits. The osseous structures are grossly intact. IMPRESSION: 1. No acute cardiopulmonary process.
--- NOTE | 2023-03-19 17:37 | CA ---
Transthoracic Echo Report Name: Jayme Womack Age: 42 Gender: M : 1980 Exam Date: 03/19/2023 14:30 Exam Location: [place] [facility] Ht (in): 74 Wt (lb): 320 Ordering Physician: Kym Long Attending/Referring Phys: Consultant [employer] Vice President [employer] (Ex ) Kristy Felix [facility] Procedure CPT: Indications: LVF Cardiac Hx: Technical Quality: Technically difficult study Contrast 1: Total Dose (mL): Contrast 2: Total Dose (mL): MEASUREMENTS (Male / Female) Normal Values 2D ECHO LV Diastolic Diameter PLAX 5.4 cm 4.2 - 5.9 / 3.9 - 5.3 cm LV Systolic Diameter PLAX 3.6 cm IVS Diastolic Thickness 1.0 cm 0.6 - 1.0 / 0.6 - 0.9 cm LVPW Diastolic Thickness 1.2 cm 0.6 - 1.0 / 0.6 - 0.9 cm LV Relative Wall Thickness 0.4 M-MODE Aortic Root Diameter MM 3.3 cm LA Systolic Diameter MM 4.6 cm LA Ao Ratio MM 1.4 AV Cusp Separation MM 2.3 cm DOPPLER AV Peak Velocity 119.7 cm/s AV Peak Gradient 5.7 mmHg AV Mean Velocity 87.8 cm/s AV Mean Gradient 3.4 mmHg AV Velocity Time Integral 26.7 cm LVOT Peak Velocity 98.8 cm/s LVOT Peak Gradient 3.9 mmHg LVOT Velocity Time Integral 20.8 cm MV Area PHT 4.6 cm??? Mitral E Point Velocity 69.1 cm/s Mitral A Point Velocity 57.0 cm/s Mitral E to A Ratio 1.2 MV Deceleration Time 165.9 ms LV E' Lateral Velocity 11.7 cm/s Mitral E to LV E' Lateral Ratio 5.9 LV E' Septal Velocity 13.3 cm/s Mitral E to LV E' Septal Ratio 5.2 Right Atrial Pressure 8.0 mmHg FINDINGS Left Ventricle Mild-moderate concentric left ventricular hypertrophy. Left ventricular cavity size at the upper limits of normal. Normal left ventricular systolic function with no obvious regional wall motion abnormalities. Left ventricular ejection fraction is estimated at 55-60%. Right Ventricle Right ventricle not well visualized. Unable to estimate the right ventricular systolic pressure. Right Atrium Right atrium not well visualized. Left Atrium Moderate left atrial dilatation. Mitral Valve Mitral valve not well visualized. Trace mitral regurgitation. Aortic Valve Aortic valve not well visualized. No aortic regurgitation. Tricuspid Valve Tricuspid valve not well visualized. Pulmonic Valve Pulmonic valve not well visualized. Pericardium No pericardial effusion. Aorta Normal size aortic root. CONCLUSIONS Technically suboptimal study secondary to poor echo windows endocardial visualization enhanced by contrast agent Concentric left ventricular hypertrophy with normal LV function Previewed by: Dr. Pantera Rosales MD (Electronically Signed) Final Date: 19 March 2023 17:36
--- NOTE | 2023-03-19 17:54 | P.HPIM ---
History of Present Illness H&P Date: 03/19/23 42 year old M with PMH of GERD and HTN presents to the ED after being told by his Sales Merchandise Associate to come to the ED for 17 beat NSVT seen on event monitor. Patient reports intermittent palpitations there's been ongoing for the past 3 weeks. Palpitations usually occur when he is drinking been or sitting down. Patient denies any chest pain or dizziness. He reports gaining 60 pounds during COVID. He denies any exertional chest pain or shortness of breath. Echocardiogram was done in 2018 which showed EF of 55-60% with moderate concentric LVH. Exercise stress test in 2019 was negative. In the ED, he was noted to be hypertensive with BP 164/103. CBC was unremarkable. CMP showed glucose 106 and ALT of 54. Troponin was less than 0.0123. TSH was 1.49. Magnesium was 2.2. EKG showed sinus rhythm with PVCs. Chest x-ray was negative. Echocardiogram was done which showed EF 55-60% with mild to moderate concentric LVH. Patient is admitted for further workup and cardiology evaluation. Pertinent positives and negatives as discussed in HPI, a complete review of systems was performed and all other systems are negative. General: non toxic, no distress, appears at stated age, obese Derm: warm, dry Head: atraumatic, normocephalic, symmetric Eyes: EOMI, no lid lag, anicteric sclera Mouth: no lip lesion, mucus membranes moist Cardiovascular: S1S2 reg, no murmur Lungs: CTA bilateral, no rhonchi, no rales , no accessory muscle use Abdominal: soft, nontender to palpation, no guarding, no appreciable organomegaly Ext: no gross muscle atrophy, no edema, no contractures Neuro: no focal neuro deficits Psych: Alert, oriented, appropriate affect NSVT Palpitations Hypertension GERD Based on my assessment of this patient, this patient meets a high complexity level of care. Patient has an acute diagnosis of symptomatic NSVT that poses a threat to life or bodily function. NSVT: K and Mg are within normal limits. Echocardiogram as above. Started on Metoprolol 50 mg PO QD. Telemetry monitoring. Cardiology consult. Possible ischemic workup? Palpitations: As above. Hypertension: As above. GERD: Omeprazole 40 mg PO QD. Mom is decicion maker if he cant make decisions for himself. FULL CODE. SCD for DVT prophylaxis. I have reviewed the following sales consultant residential manager notes: Cardiology note reviewed. I have reviewed the results of the following tests: CBC, CMP, echocardiogram, stress test, TSH, magnesium, chest x-ray. I have ordered the following tests: I have discussed the care of this patient with the following independent historian: I have independently interpreted the following test below: EKG as above. I have discussed the management of this patient with the following physician: Past Medical History Past Medical History: GERD/Reflux, Hypertension Additional Past Medical History / Comment(s): HERNIATED DISC. History of Any Multi-Drug Resistant Organisms: None Reported Past Surgical History: No Surgical Hx Reported Additional Past Anesthesia/Blood Transfusion Reaction / Comment(s): NEVER RECEIVED ANESTHESIA Past Psychological History: ADD/ADHD Smoking Status: Never smoker Past Alcohol Use History: Daily Past Drug Use History: None Reported - Past Family History Mother Family Medical History: Hypertension, Thyroid Disorder Father Family Medical History: No Reported History Medications and Allergies Home Medications Medication Instructions Recorded Confirmed Type atenoloL [Tenormin] 25 mg PO DIRECTED 12/20/18 03/19/23 History Omeprazole [PriLOSEC] 40 mg PO DAILY 01/11/20 03/19/23 History Metoprolol Succinate (ER) [Toprol 50 mg PO DIRECTED 03/19/23 03/19/23 History Xl] Allergies Allergy/AdvReac Type Severity Reaction Status Date / Time No Known Allergies Allergy Verified 03/19/23 10:35 Physical Exam Vitals: Vital Signs Temp Pulse Resp BP Pulse Ox 03/19/23 16:00 98 F 71 15 133/89 100 03/19/23 12:13 98.1 F 63 18 127/90 98 03/19/23 09:38 98.2 F 73 18 164/103 99 Intake and Output 03/19/23 03/19/23 03/19/23 06:59 14:59 22:59 Other: Weight 145.15 kg Results CBC & Chem 7: 03/19/23 10:49 03/19/23 10:49 Labs: Abnormal Lab Results - Last 24 Hours (Table) 03/19/23 Range/Units 10:49 Glucose 106 H (74-99) mg/dL ALT 54 H (4-49) U/L
[2023-03-20] MEDS: PANTOPRAZOLE 40 MG TABLET PO SCH (05:54)
--- NOTE | 2023-03-20 07:22 | P.PN ---
Subjective Progress Note Date: 03/20/23 Principal diagnosis: Nonsustained ventricular tachycardia The patient is a 42-year-old gentleman who was sent by Dr. Buchanan directly to the hospital for an episodes of ventricular tachycardia appears to be non-sustained. The patient was symptomatic interim of heart racing/fluttering and sometimes chest discomfort associated with it. He underwent further cardiac workup including cardiac enzymes came in to be unremarkable and echo revealed preserved LV systolic function was no significant valvular abnormalities March 202022 The patient was seen and evaluated this morning. He continues to have intermittent episodes of nonsustained ventricular tachycardia and PVCs with currently he is on Toprol-XL. I would rather monitor the patient for additional [address] Lea consulted to see the patient and the patient is in process to be seen. The examination is remarkable for stable vital signs with a regular rhythm and clear breathing sounds bilaterally Assessment Nonsustained ventricular tachycardia Medications/heart racing secondary to the above Plan Acute coronary syndrome was ruled out The LV function appeared to be stable Continue the current dose of Toprol-XL Monitor the patient for additional 24 hours Objective - Vital Signs Vital signs: Vital Signs Temp 98.3 F 03/20/23 04:00 Pulse 54 L 03/20/23 04:00 Resp 16 03/20/23 04:00 BP 138/78 03/20/23 04:00 Pulse Ox 98 03/20/23 04:00 FiO2 Intake & Output 03/19/23 03/20/23 03/20/23 18:59 06:59 18:59 Intake Total 10 Balance 10 Weight 145.15 kg 145.15 kg Intake: IV 10 Invasive Line 1 10 Other: # Voids 1 - Labs CBC & Chem 7: 03/19/23 10:49 03/19/23 10:49 Labs: Abnormal Lab Results - Last 24 Hours (Table) 03/19/23 Range/Units 10:49 Glucose 106 H (74-99) mg/dL ALT 54 H (4-49) U/L
[2023-03-20] MEDS ORDERED: ASPIRIN 325 MG TAB PO SCH (09:00)
[2023-03-20] MEDS: METOPROLOL SUCCINATE (ER) 50 MG TAB.ER.24H PO SCH (09:39)
[2023-03-20] MEDS: ASPIRIN 81 MG PO SCH (09:39)
--- NOTE | 2023-03-20 12:29 | P.PN ---
Subjective Progress Note Date: 03/20/23 42 year old M with PMH of GERD and HTN presents to the ED after being told by his Force Variation Equipment Tender to come to the ED for 17 beat NSVT seen on event monitor. Patient reports intermittent palpitations there's been ongoing for the past 3 weeks. Palpitations usually occur when he is drinking been or sitting down. Patient denies any chest pain or dizziness. He reports gaining 60 pounds during COVID. He denies any exertional chest pain or shortness of breath. Echocardiogram was done in 2018 which showed EF of 55-60% with moderate concentric LVH. Exercise stress test in 2019 was negative. In the ED, he was noted to be hypertensive with BP 164/103. CBC was unremarkable. CMP showed glucose 106 and ALT of 54. Troponin was less than 0.0123. TSH was 1.49. Magnesium was 2.2. EKG showed sinus rhythm with PVCs. Chest x-ray was negative. Echocardiogram was done which showed EF 55-60% with mild to moderate concentric LVH. Patient is admitted for further workup and cardiology evaluation. 03/20 Patient was seen and examined. No acute events overnight. Patient continues to report intermittent palpitations. Continues to have intermittent episodes of NSVT and PVCs. Discussed with Dr. Pena, recommends monitoring overnight with EP consultation. Patient may benefit from outpatient ischemic workup. His troponin has been less than 0.012 times for. General: non toxic, no distress, appears at stated age, obese Derm: warm, dry Head: atraumatic, normocephalic, symmetric Eyes: EOMI, no lid lag, anicteric sclera Cardiovascular: S1S2 reg, no murmur Lungs: CTA bilateral, no rhonchi, no rales , no accessory muscle use Ext: no gross muscle atrophy, no edema, no contractures Neuro: no focal neuro deficits Psych: Alert, oriented, appropriate affect NSVT Palpitations Hypertension GERD Based on my assessment of this patient, this patient meets a high complexity level of care. Patient has an acute diagnosis of symptomatic NSVT that poses a threat to life or bodily function. NSVT: K and Mg are within normal limits. Echocardiogram as above. Started on Metoprolol 50 mg PO QD. Telemetry monitoring. Cardiology consult. Possible ischemic workup? Palpitations: As above. Hypertension: As above. GERD: Omeprazole 40 mg PO QD. Mom is decicion maker if he cant make decisions for himself. FULL CODE. SCD for DVT prophylaxis. I have reviewed the following packaging sales consultant notes: Cardiology note reviewed. I have reviewed the results of the following tests: Troponin. I have ordered the following tests: I have discussed the care of this patient with the following independent historian: I have independently interpreted the following test below: I have discussed the management of this patient with the following physician: Case discussed with Dr. Pena as above. Objective - Vital Signs Vital signs: Vital Signs Temp 98.2 F 03/20/23 08:00 Pulse 60 03/20/23 08:00 Resp 16 03/20/23 08:00 BP 144/85 03/20/23 08:00 Pulse Ox 99 03/20/23 08:00 FiO2 Intake & Output 03/19/23 03/20/23 03/20/23 18:59 06:59 18:59 Intake Total 10 120 Balance 10 120 Weight 145.15 kg 145.15 kg Intake: IV 10 Invasive Line 1 10 Oral 120 Other: # Voids 1 1 - Labs CBC & Chem 7: 03/19/23 10:49 03/19/23 10:49
[2023-03-21] MEDS: PANTOPRAZOLE 40 MG TABLET PO SCH (07:00)
--- NOTE | 2023-03-21 07:05 | P.PN ---
Subjective Progress Note Date: 03/21/23 Principal diagnosis: Nonsustained ventricular tachycardia The patient is a 42-year-old gentleman who was sent by Dr. Buchanan directly to the hospital for an episodes of ventricular tachycardia appears to be non-sustained. The patient was symptomatic interim of heart racing/fluttering and sometimes chest discomfort associated with it. He underwent further cardiac workup including cardiac enzymes came in to be unremarkable and echo revealed preserved LV systolic function was no significant valvular abnormalities March 202022 The patient was seen and evaluated this morning. He continues to have intermittent episodes of nonsustained ventricular tachycardia and PVCs with currently he is on Toprol-XL. I would rather monitor the patient for additional [address] Lea consulted to see the patient and the patient is in process to be seen. The examination is remarkable for stable vital signs with a regular rhythm and clear breathing sounds bilaterally 03/21/2023 The patient was seen and evaluated this morning. He did have a long episode of wide complex rhythm yesterday. He was symptomatic with it. From the cardiac standpoint of view, and with that being said I would suggest monitoring the patient for additional 24 hours and would make sure that the patient will be seen tomorrow by Dr. Lea for further input. Otherwise he reports no pain in the chest and no shortness of breath and no presyncope or syncope. Vitals are stable. There is a is a good examination overall appeared to be unremarkable. The echo revealed normal LV systolic function with evidence of hypertensive heart disease. The examination is remarkable for stable vital signs with a regular rhythm and clear breathing sounds bilaterally. No lower extremity edema noted Assessment Wide complex tachycardia with differential diagnosis of nonsustained ventricular tachycardia versus SVT with aberrancy Plan Acute coronary syndrome was ruled out The LV function appeared to be normal Monitor the patient in the hospital Electrophysiology consult to be done in the morning Objective - Vital Signs Vital signs: Vital Signs Temp 97.9 F 03/21/23 00:00 Pulse 54 L 03/21/23 04:00 Resp 16 03/20/23 14:00 BP 120/76 03/21/23 04:00 Pulse Ox 98 03/21/23 04:00 FiO2 Intake & Output 03/20/23 03/21/23 03/21/23 18:59 06:59 18:59 Intake Total 480 Balance 480 Intake: Oral 480 Other: # Voids 1 - Labs CBC & Chem 7: 08/18/23 10:49 03/19/23 10:49 Labs: Abnormal Lab Results - Last 24 Hours (Table) 03/20/23 Range/Units 08:41 HDL Cholesterol 35.60 L (40.00-60.00) mg/dL
[2023-03-21] MEDS: METOPROLOL SUCCINATE (ER) 50 MG TAB.ER.24H PO SCH (09:17)
[2023-03-21] MEDS: ASPIRIN 81 MG PO SCH (09:17)
--- NOTE | 2023-03-21 12:04 | P.PN ---
Subjective Progress Note Date: 03/21/23 42 year old M with PMH of GERD and HTN presents to the ED after being told by his Yarn Salvager to come to the ED for 17 beat NSVT seen on event monitor. Patient reports intermittent palpitations there's been ongoing for the past 3 weeks. Palpitations usually occur when he is drinking been or sitting down. Patient denies any chest pain or dizziness. He reports gaining 60 pounds during COVID. He denies any exertional chest pain or shortness of breath. Echocardiogram was done in 2018 which showed EF of 55-60% with moderate concentric LVH. Exercise stress test in 2019 was negative. In the ED, he was noted to be hypertensive with BP 164/103. CBC was unremarkable. CMP showed glucose 106 and ALT of 54. Troponin was less than 0.0123. TSH was 1.49. Magnesium was 2.2. EKG showed sinus rhythm with PVCs. Chest x-ray was negative. Echocardiogram was done which showed EF 55-60% with mild to moderate concentric LVH. Patient is admitted for further workup and cardiology evaluation. 03/20 Patient was seen and examined. No acute events overnight. Patient continues to report intermittent palpitations. Continues to have intermittent episodes of NSVT and PVCs. Discussed with Dr. ePna, recommends monitoring overnight with EP consultation. Patient may benefit from outpatient ischemic workup. His troponin has been less than 0.012 times 4. 03/21 Patient was seen and examined. Telemetry shows multiple episodes of wide complex tachycardia. He reports intermitted palpitations. Cardiology recommends EP consult tomorrow morning. Lipid panel shows HDL of 35.6 and LDL 89. General: non toxic, no distress, appears at stated age, obese Derm: warm, dry Head: atraumatic, normocephalic, symmetric Eyes: EOMI, no lid lag, anicteric sclera Cardiovascular: S1S2 reg, no murmur Lungs: CTA bilateral, no rhonchi, no rales , no accessory muscle use Ext: no gross muscle atrophy, no edema, no contractures Neuro: no focal neuro deficits Psych: Alert, oriented, appropriate affect NSVT Palpitations Hypertension GERD Based on my assessment of this patient, this patient meets a moderate complexity level of care. Patient has an acute diagnosis of symptomatic NSVT that poses a threat to life or bodily function. NSVT: K and Mg are within normal limits. Echocardiogram as above. Started on Metoprolol 50 mg PO QD. Telemetry monitoring. Cardiology consult. Possible ischemic workup? Palpitations: As above. Hypertension: As above. GERD: Omeprazole 40 mg PO QD. Mom is decicion maker if he cant make decisions for himself. FULL CODE. SCD for DVT prophylaxis. I have reviewed the following consultant teacher notes: Cardiology note reviewed. I have reviewed the results of the following tests: I have ordered the following tests: I have discussed the care of this patient with the following independent historian: I have independently interpreted the following test below: I have discussed the management of this patient with the following physician: Objective - Vital Signs Vital signs: Vital Signs Temp 97.4 F L 03/21/23 08:00 Pulse 55 L 03/21/23 08:00 Resp 18 03/21/23 08:00 BP 154/72 03/21/23 08:00 Pulse Ox 99 03/21/23 08:00 FiO2 Intake & Output 03/20/23 03/21/23 03/21/23 18:59 06:59 18:59 Intake Total 480 180 Balance 480 180 Intake: Oral 480 180 Other: # Voids 1 3 - Labs CBC & Chem 7: 03/19/23 10:49 03/19/23 10:49 Labs: Abnormal Lab Results - Last 24 Hours (Table) 03/20/23 Range/Units 08:41 HDL Cholesterol 35.60 L (40.00-60.00) mg/dL
[2023-03-21 14:22] LABS: African American GFR (CKD) >90 (>60 ml/min/1.73 sqM); Anion Gap 10 mmol/L; Blood Urea Nitrogen 14 mg/dL (9-20); Calcium 8.6 mg/dL (8.4-10.2); Carbon Dioxide 26 mmol/L (22-30); Chloride 103 mmol/L (98-107); Glucose 113 mg/dL (74-99); Magnesium 2.2 mg/dL (1.6-2.3); Non-African American GFR(CKD) 79 (>60 ml/min/1.73 sqM); Potassium 3.8 mmol/L (3.5-5.1); Sodium 139 mmol/L (137-145)
[2023-03-22] MEDS: METOPROLOL SUCCINATE (ER) 50 MG TAB.ER.24H PO SCH (09:50)
[2023-03-22] MEDS: ASPIRIN 81 MG PO SCH (09:51)
[2023-03-22] MEDS: PANTOPRAZOLE 40 MG TABLET PO SCH (09:51)
--- NOTE | 2023-03-22 11:46 | P.PN ---
Subjective Progress Note Date: 03/22/23 42 year old M with PMH of GERD and HTN presents to the ED after being told by his Sprue Knocker to come to the ED for 17 beat NSVT seen on event monitor. Patient reports intermittent palpitations there's been ongoing for the past 3 weeks. Palpitations usually occur when he is drinking been or sitting down. Patient denies any chest pain or dizziness. He reports gaining 60 pounds during COVID. He denies any exertional chest pain or shortness of breath. Echocardiogram was done in 2018 which showed EF of 55-60% with moderate concentric LVH. Exercise stress test in 2019 was negative. In the ED, he was noted to be hypertensive with BP 164/103. CBC was unremarkable. CMP showed glucose 106 and ALT of 54. Troponin was less than 0.0123. TSH was 1.49. Magnesium was 2.2. EKG showed sinus rhythm with PVCs. Chest x-ray was negative. Echocardiogram was done which showed EF 55-60% with mild to moderate concentric LVH. Patient is admitted for further workup and cardiology evaluation. 03/20 Patient was seen and examined. No acute events overnight. Patient continues to report intermittent palpitations. Continues to have intermittent episodes of NSVT and PVCs. Discussed with Dr. Pena, recommends monitoring overnight with EP consultation. Patient may benefit from outpatient ischemic workup. His troponin has been less than 0.012 times 4. 03/21 Patient was seen and examined. Telemetry shows multiple episodes of wide complex tachycardia. He reports intermitted palpitations. Cardiology recommends EP consult tomorrow morning. Lipid panel shows HDL of 35.6 and LDL 89. 03/22 Patient was seen and examined. Telemetry shows multiple episodes of wide complex tachycardia. He reports no complaints today. EP consult is pending. BMP shows glucose 113. General: non toxic, no distress, appears at stated age, obese Derm: warm, dry Head: atraumatic, normocephalic, symmetric Eyes: EOMI, no lid lag, anicteric sclera Cardiovascular: S1S2 reg, no murmur Lungs: CTA bilateral, no rhonchi, no rales , no accessory muscle use Ext: no gross muscle atrophy, no edema, no contractures Neuro: no focal neuro deficits Psych: Alert, oriented, appropriate affect Wide complex tachycardia Palpitations Hypertension GERD Based on my assessment of this patient, this patient meets a moderate complexity level of care. Patient has an acute diagnosis of symptomatic NSVT that poses a threat to life or bodily function. NSVT: K and Mg are within normal limits. Echocardiogram as above. Started on Metoprolol 50 mg PO QD. Telemetry monitoring. EP consult pending. Palpitations: As above. Hypertension: As above. GERD: Omeprazole 40 mg PO QD. Mom is decicion maker if he cant make decisions for himself. FULL CODE. SCD for DVT prophylaxis. I have reviewed the following labor relations consultant notes: I have reviewed the results of the following tests: BMP. I have ordered the following tests: I have discussed the care of this patient with the following independent historian: I have independently interpreted the following test below: I have discussed the management of this patient with the following physician: Case discussed with Ana RICE, Dr. Lea was made aware of the consult today. Objective - Vital Signs Vital signs: Vital Signs Temp 97.6 F 03/22/23 08:00 Pulse 60 03/22/23 08:00 Resp 16 03/22/23 08:00 BP 135/99 03/22/23 08:00 Pulse Ox 99 03/22/23 09:41 FiO2 Intake & Output 03/21/23 03/22/23 03/22/23 18:59 06:59 18:59 Intake Total 500 Balance 500 Intake: Oral 500 Other: # Voids 2 - Labs CBC & Chem 7: 03/19/23 10:49 03/21/23 12:48 Labs: Abnormal Lab Results - Last 24 Hours (Table) 03/21/23 Range/Units 12:48 Glucose 113 H (74-99) mg/dL
[2023-03-23] MEDS: PANTOPRAZOLE 40 MG TABLET PO SCH (06:14)
[2023-03-23] MEDS: ASPIRIN 81 MG PO SCH (09:32)
[2023-03-23 09:33] VITALS: TEMP 98
[2023-03-23] MEDS: METOPROLOL SUCCINATE (ER) 50 MG TAB.ER.24H PO SCH (09:33)
--- NOTE | 2023-03-23 09:49 | P.EPCON ---
Electrophysiology Consult - EP Consult Electrophysiology Consult: This is Dr. Lea dictating a consult on this patient The patient was interviewed and examined IMPRESSION / ASSESSMENT: Recurrent palpitations without syncope or presyncope Wide complex tachycardia, nonsustained on event monitor despite atenolol Nonsustained VT likely originating from the inferior wall of the LV Suppression of PVCs with Toprol-XL 50 mg by mouth daily No PVCs and nonsustained VT with exercise on telemetry Normal TSH Normal LV function PLAN: Continue metoprolol succinate 50 g by mouth daily Discharge home today Continue monitor is still 29 March Daily exercise at home while wearing the monitor Follow-up with Dr. Lea in mid to late April No indication for antiarrhythmic drug therapy, no indication for ablation at this time HPI Patient was admitted to the hospital after nonsustained VT runs were detected on the event monitor despite atenolol He was started on metoprolol He did not have any syncopal spells with the complaint of palpitations No chest discomfort ROS: No fever chills or rigors, no cough, phlegm or expectoration, no nausea, vomiting or diarrhea, no hematuria, dysuria, no musculoskeletal complaints, no strokes or seizures, no skin lesions. EXAMINATION: Pulse rate in the 60s, respirations normal Blood pressure 126/79 mmHg Heart sounds S1 and S2 are normal no murmurs or gallops or rub Breath sounds are clear no rhonchi no crackles Extremities warm no edema REVIEW OF LABS, ECG & MEDICAL DATA Sodium 139, potassium 3.8, BUN 14 TSH normal LDL 89 Troponins normal TSH 1.4
--- NOTE | 2023-03-23 11:29 | P.DS ---
Providers Date of admission: 03/19/23 11:59 Expected date of discharge: 03/23/23 Attending physician: Mai Roper DO Consults: 03/19/23 10:32 Consult Physician Routine Consulting Provider: Naif Lea Consult Reason/Comments: EP eval 17 beat VT Do you want consulting provider notified?: Yes 03/19/23 11:56 Consult Physician Urgent Consulting Provider: Dandre Pena Consult Reason/Comments: V. tach Do you want consulting provider notified?: Already Contacted Primary care physician: Chava Pina [facility] Course: Discharge Diagnosis: Nonsustained ventricular tachycardia PVCs Palpitations GERD Hospital Course: 42 year old M with PMH of GERD and HTN presents to the ED after being told by his [employer] Clerk to come to the ED for 17 beat NSVT seen on event monitor. Patient reports intermittent palpitations there's been ongoing for the past 3 weeks. In the ED, he was noted to be hypertensive with BP 164/103. CBC was unremarkable. CMP showed glucose 106 and ALT of 54. Troponin was less than 0.0123. TSH was 1.49. Magnesium was 2.2. EKG showed sinus rhythm with PVCs. Chest x-ray was negative. Echocardiogram was done which showed EF 55-60% with mild to moderate concentric LVH. Patient is admitted for further workup and cardiology evaluation. Cardiology recommending outpatient ischemic workup. Electrophysiology consulted. Recommending outpatient follow-up. Atenolol changed to metoprolol. Patient seen and examined at bedside. Vital signs reviewed and stable. General: nontoxic, no distress, appears at stated age Derm: warm, dry Head: atraumatic, normocephalic, symmetric Eyes: EOMI, no lid lag, anicteric sclera Mouth: no lip lesion, mucus membranes moist Cardiovascular: S1S2 reg, no murmur Lungs: CTA bilateral, no rhonchi, no rales , no accessory muscle use Abdominal: soft, nontender to palpation, no guarding, no appreciable organomegaly Ext: no gross muscle atrophy, no edema, no contractures Neuro: CN II-XI grossly intact, no focal neuro deficits Psych: Alert, oriented, appropriate affect A total of 33 minutes of time were spent preparing this complex discharge summary. Patient was discharged on 03/23/23 at 11:28. Patient Condition at Discharge: Stable Plan - Discharge Summary Discharge Rx Participant: No New Discharge Prescriptions: New Aspirin 81 mg PO DAILY #60 tab Metoprolol Succinate (ER) [Toprol XL] 50 mg PO DAILY #60 tab Continue Omeprazole [PriLOSEC] 40 mg PO DAILY Discontinued atenoloL [Tenormin] 25 mg PO DIRECTED Metoprolol Succinate (ER) [Toprol Xl] 50 mg PO DIRECTED Discharge Medication List Omeprazole [PriLOSEC] 40 mg PO DAILY 01/11/20 [History] Aspirin 81 mg PO DAILY #60 tab 03/23/23 [Rx] Metoprolol Succinate (ER) [Toprol XL] 50 mg PO DAILY #60 tab 03/23/23 [Rx] Follow up Appointment(s)/Referral(s): Chava Pina MD [Primary Care Provider] - 1-2 days Patient Instructions/Handouts: Tachycardia (GEN) Activity/Diet/Wound Care/Special Instructions: Metoprolol succinate 50 mg by mouth daily Continue wearing the monitor to 29 of March Follow-up with Dr. Buchanan on April 06 as previously scheduled New appointment with Dr. Lea on April 28 at 3 PM, @ [facility] office (not the main office) Discharge Disposition: HOME SELF-CARE
[2023-03-23 11:35] VITALS: BP 126/84; PULSE 61; RESP 15
== END 2023-03-23 12:50 | disposition home or self-care (01) | DRG 309 ==
LOC: EC 09:34 → 3SCARD 11:59
PROVIDERS: ADMIT Internal Medicine; ATTEND Internal Medicine
DX: I47.20 Ventricular tachycardia, unspecified (principal); Z68.41 Body mass index [BMI] 40.0-44.9, adult; K21.9 Gastro-esophageal reflux disease without esophagitis; I11.9 Hypertensive heart disease without heart failure; F90.9 Attention-deficit hyperactivity disorder, unspecified type; E66.9 Obesity, unspecified; Z79.899 Other long term (current) drug therapy; Z82.49 Family history of ischemic heart disease and other diseases of the circulatory system
CPT/HCPCS: 36415; 71046; 80048; 80053; 80061; 83735; 84443; 84484; 85027; 93005; 93306; 94760; 99285